=== PATIENT | male | born 1985 | race Caucasian/White ===

== ENCOUNTER 2018-02-09 23:46 | Inpatient (IN) | END 2018-02-13 08:55 | disposition home or self-care (01) | DRG 661 ==

== ENCOUNTER 2018-02-17 22:58 | Observation (INO) | END 2018-02-18 12:40 | disposition home or self-care (01) ==

== ENCOUNTER 2018-12-03 18:57 | Emergency (ER) | payer SELFPAY ==
[~2018-12-03] VITALS: Ht 165.1 cm; Wt 89.5 kg
[~2018-12-03 18:57] MED LIST: AMOX1TAB10 PO; HYDR-4011 PO; IBUP-1542 PO; LACT1CAP57 PO; TAMS0.4C2 PO
[2018-12-03 19:11] VITALS: Ht 165.1 cm; Wt 89.5 kg
[2018-12-03] MEDS ORDERED: IBUPROFEN 600 MG TAB PO ONE (20:00)
[2018-12-03 21:14] VITALS: BP 135/90; PULSE 75; RESP 18
== END 2018-12-03 21:14 | disposition home or self-care (01) ==
LOC: FTE 18:57
DX: S92.902A Unspecified fracture of left foot, initial encounter for closed fracture (principal); W01.0XXA Fall on same level from slipping, tripping and stumbling without subsequent striking against object, initial encounter; Y92.9 Unspecified place or not applicable
CPT/HCPCS: L4386